=== PATIENT | female | born 1960 | race Caucasian/White ===

== ENCOUNTER → 2017-10-11 | Outpatient (CLI) | payer BC | LOC: BRMIMAGING 07:45 | PROVIDERS: ATTEND Family Medicine | DX: Z12.31 Encounter for screening mammogram for malignant neoplasm of breast (principal) | CPT/HCPCS: G0202 ==

== ENCOUNTER → 2018-07-04 | Outpatient (CLI) | payer BC | LOC: BRMIMAGING 09:01 | PROVIDERS: ATTEND Internal Medicine Rheumatology | DX: M24.841 Other specific joint derangements of right hand, not elsewhere classified (principal); M24.842 Other specific joint derangements of left hand, not elsewhere classified; M77.31 Calcaneal spur, right foot | CPT/HCPCS: 73120-PO; 73600-PO ==

== ENCOUNTER → 2019-01-09 | Outpatient (CLI) | payer BC, OTHER | LOC: BRMIMAGING 09:32 | PROVIDERS: ATTEND Family Medicine | DX: Z12.31 Encounter for screening mammogram for malignant neoplasm of breast (principal) ==